=== PATIENT | female | born 1995 | race Two or more races ===

== ENCOUNTER 2020-06-11 02:25 | Emergency (ER) | payer SELFPAY ==
[~2020-06-11] VITALS: Ht 157.5 cm; Wt 77.1 kg
--- NOTE | 2020-06-11 02:35 | NUR ---
[facility] 39 [facility] [id number] [address] [facility] FOR PT WAS FOUND ON THE FLOOR. PER MES POSSIBLE FENTANYL OVERDOSE. NARCAN 4 IM GIVEN BY THE STAFF AT THE FACILITY AND [employer] AND RA WERE CALLED. ZOFRAN 4MG IM GIVEN FOR N/V BY RA [employer]. PT CURRENTLY AWAKE AND RESPONSIVE. AGRESSIVE AND NON- COMPLIANT. DENIED SI/HI. WAS PLACED ON A MONITOR IN BED 10. WILL CONT TO MONITOR ,
--- NOTE | 2020-06-11 03:37 | NUR ---
PT IN BED AWAKE AND ALERT, RESPONSIVE. CALM AND COOPERATIVE. NO DISTRESS. VSS. HAVING ICE CHIPS. TOLERATED WELL. WILL CONT TO MONITOR,
--- NOTE | 2020-06-11 04:03 | NUR ---
pt is medically stable for d/c. called [facility] and asked for citrus picker.
--- NOTE | 2020-06-11 04:17 | NUR ---
PER DR. MILLS, PT MEDICALLY CLEARED FOR DISCHARGE. PT PICKED UP BY STAFF MEMBER OF [facility]. AMBULATORY WITH STEADY GAIT. Patient discharged to home in stable condition. Written and verbal after care instructions given. Patient verbalizes understanding of instruction.
[2020-06-11 04:21] VITALS: BP 126/86
== END 2020-06-11 04:21 | disposition home or self-care (01) ==
LOC: ER 02:28
DX: T40.601A Poisoning by unspecified narcotics, accidental (unintentional), initial encounter (principal); R51.9 Headache, unspecified; Y92.89 Other specified places as the place of occurrence of the external cause